=== PATIENT | female | born 1950 | race Caucasian/White ===

== ENCOUNTER 2017-08-23 12:01 | Emergency (ER) | payer MEDICARE | END 2017-08-23 12:43 | disposition home or self-care (01) | LOC: NAV ERS 12:01 | DX: M75.51 Bursitis of right shoulder (principal); M25.811 Other specified joint disorders, right shoulder; I10 Essential (primary) hypertension; Z79.899 Other long term (current) drug therapy | CPT/HCPCS: 99283 ==

== ENCOUNTER 2018-02-07 09:54 | Emergency (ER) | payer MEDICARE | END 2018-02-07 10:27 | disposition home or self-care (01) | LOC: NAV ERS 09:54 | DX: S00.262A Insect bite (nonvenomous) of left eyelid and periocular area, initial encounter (principal); H00.036 Abscess of eyelid left eye, unspecified eyelid; I10 Essential (primary) hypertension; Z79.899 Other long term (current) drug therapy; W57.XXXA Bitten or stung by nonvenomous insect and other nonvenomous arthropods, initial encounter | CPT/HCPCS: 99283 ==

== ENCOUNTER 2018-08-23 14:17 | Emergency (ER) | payer MEDICARE ==
[2018-08-23] MEDS ORDERED: traMADol HCl 50 MG TAB ONE (14:50)
--- NOTE | 2018-08-23 15:13 | RAD ---
LEFT KNEE FOUR VIEWS: History: Left knee pain, injury. FINDINGS/IMPRESSION: No acute fracture or dislocation is identified. POS: OFF
== END 2018-08-23 16:04 | disposition home or self-care (01) ==
LOC: NAV ERS 14:17
DX: M25.562 Pain in left knee (principal); I10 Essential (primary) hypertension; F41.9 Anxiety disorder, unspecified; Z79.899 Other long term (current) drug therapy

== ENCOUNTER 2020-02-20 13:19 | Emergency (ER) | payer MEDICARE ==
[2020-02-20] MEDS ORDERED: Fluorescein Opthalmic Strip ONE (13:58)
[2020-02-20] MEDS ORDERED: Adacel (T-DAP) 0.5 ML SYRINGE ONE (14:23)
== END 2020-02-20 14:43 | disposition home or self-care (01) ==
LOC: NAV ERS 13:19
DX: H57.11 Ocular pain, right eye (principal); M19.90 Unspecified osteoarthritis, unspecified site; I10 Essential (primary) hypertension; F41.9 Anxiety disorder, unspecified; Z79.899 Other long term (current) drug therapy
CPT/HCPCS: 90471; 90715